=== PATIENT | female | born 1940 | race Caucasian/White ===

== ENCOUNTER → 2017-07-04 | Outpatient (CLI) | payer MEDICARE ==
--- NOTE | 2017-07-05 12:53 | MM ---
Reason for exam: screening (asymptomatic). Last mammogram was performed 2 years and 9 months ago. History: Patient is postmenopausal. Took hormonal contraceptives beginning at age 25. Physical Findings: A clinical breast exam by your physician is recommended on an annual basis and results should be correlated with mammographic findings. MG Screening Mammo w CAD Bilateral CC and MLO view(s) were taken. Prior study comparison: September 28, 2014, bilateral MG screening mammo w CAD. There are scattered fibroglandular densities. Mole marker in the left breast. No significant changes when compared with prior studies. ASSESSMENT: Benign, BI-RAD 2 RECOMMENDATION: Routine screening mammogram of both breasts in 1 year.
== END | disposition home or self-care (01) ==
LOC: RADMAMWWP 15:01
PROVIDERS: ATTEND Family Medicine
DX: Z12.31 Encounter for screening mammogram for malignant neoplasm of breast (principal)

== ENCOUNTER 2018-12-03 06:49 | Day surgery (SDC) | payer MEDICARE ==
[~2018-12-03 06:49] MED LIST: LACTATED RINGERS 1,000 ML IV SCH
[2018-12-03 07:09] VITALS: TEMP 97.9
[2018-12-03] MEDS ORDERED: LIDOCAINE 1% 20 ML VIAL (10MG/ML) FOR IV START INTRADERMA ONE (07:22)
[2018-12-03 07:29] LABS: Glucose,Whole Blood 141 mg/dL (75-99)
[2018-12-03] MEDS ORDERED: PROPOFOL 10 MG/ML 20 ML VIAL IV ONE (08:58)
[2018-12-03] MEDS ORDERED: LIDOCAINE 1% INJ 10MG/ML (20 ML MDV) ONE (08:58)
--- NOTE | 2018-12-03 09:33 | P.PCN ---
Date of Procedure: 12/03/18 Procedure(s) Performed: Procedure: Total colonoscopy. Preoperative diagnosis: Screening for neoplasia, patient has history of polyps. Postoperative diagnosis: Sigmoid diverticulosis with no evidence of acute diverticulitis, strictures, polyps or cancer. Preparation: HalfLytely prep. Sedation: Was provided by anesthesia. Brief clinical history: The patient is a 78-year-old female who is scheduled for this evaluation for screening for neoplasia because of history of polyps. Her last exam was in 2012. The patient has no abdominal complaints, bleeding or anemia. Procedure: With the patient on her left lateral decubitus position and after informed consent and adequate sedation, the perianal area was inspected and it did not show any fissures or fistulas. There were no masses felt on digital rectal examination. The Olympus CFH 190L video colonoscope was then inserted in the rectum in the usual fashion and advanced to the cecum. There were a few diverticular orifices seen scattered in the sigmoid but there was no evidence of acute diverticulitis or strictures. No polyps or tumors were seen. The mucosa appeared healthy. I retroflexed the endoscope in the rectum before the endoscope was withdrawn. The patient tolerated the procedure well. Plan: The patient was reassured. Discussed dietary measures. She will follow- up with you as planned. At her age, I did not suggest repeat surveillance or screening and she will discuss that with you in the future.
[2018-12-03 09:46] VITALS: BP 132/77; PULSE 56; RESP 18
== END 2018-12-03 10:09 | disposition home or self-care (01) ==
LOC: ORWHC2ENDO 06:49
DX: Z12.11 Encounter for screening for malignant neoplasm of colon (principal); K57.30 Diverticulosis of large intestine without perforation or abscess without bleeding; Z86.010 Personal history of colon polyps; Z88.5 Allergy status to narcotic agent; Z88.6 Allergy status to analgesic agent; Z91.040 Latex allergy status; M19.90 Unspecified osteoarthritis, unspecified site
CPT/HCPCS: G0121; J2001; J2704; 45378

== ENCOUNTER → 2020-04-21 | Outpatient (CLI) | payer MEDICARE ==
--- NOTE | 2020-04-22 04:10 | MR ---
EXAMINATION TYPE: MR foot RT wo con DATE OF EXAM: 04/21/2020 COMPARISON: 07/09/2014 HISTORY: Rt foot pain x3 weeks in area of prior injury/scar Multiplanar multiecho imaging of the right foot was performed without contrast. On the T2 images there is some diffuse increased signal in the proximal phalanx of the little toe. Th ere is also mild increased signal in the base of the proximal phalanx of the fourth toe. I see no fra cture line. The medial and lateral flexor tendons of the foot appear intact. Achilles tendon is intac t. There is a 18 x 7 mm oval-shaped fluid collection along the posterior aspect of the distal tibial metaphysis. This is probably a synovial cyst. There is a mild ankle joint effusion. The collateral li gaments of the ankle appear intact. IMPRESSION: There is mild subcutaneous edema of the forefoot around the toes. There is evidence of bone bruise an d edema involving the proximal phalanx of the fourth toe and the little toe. No fracture line seen. B one edema is new compared to old exam. Forefoot soft tissue swelling improved compared to old exam.
== END | disposition home or self-care (01) ==
LOC: RADMRIMAIN 09:15
PROVIDERS: ATTEND Orthopaedic Surgery
DX: S90.121A Contusion of right lesser toe(s) without damage to nail, initial encounter (principal); M79.89 Other specified soft tissue disorders; R60.0 Localized edema; M72.2 Plantar fascial fibromatosis

== ENCOUNTER → 2021-01-25 | Outpatient (CLI) | payer MEDICARE ==
--- NOTE | 2021-01-25 10:43 | BD ---
EXAMINATION TYPE: Axial Bone Density DATE OF EXAM: 01/25/2021 COMPARISON: NONE CLINICAL HISTORY: 80 YR OLD FEMALE......ICD-10 CODE: N95.1 POST MENOPAUSAL Height: 60 Weight: 164 FRAX RISK QUESTIONS: History of Fracture in Adulthood: YES RISK FACTORS HISTORY OF: HX OF HUMORAL FX AT AGE 64 YRS OLD Postmenopausal woman: YES AT AGE 47 YRS OLD Lost more than 2 inches in height since high school: YES Frequent falls: UNSTEADY, WALKS STOOPED A BIT Hyperparathyroidism: NO Adrenal Insufficiency: NO MEDICATIONS: Thyroid Medications: YES, SYNTHROID FOR ABOUT 3-5 YRS, NONE NOW Additional Medications: VIT D Additional History: HX OF MIS DIAGNOSED THYROID, PRE DIABETIC, SLIGHT HYPERTENSION EXAM MEASUREMENTS: Bone mineral densitometry was performed using the yourdel[employer] System. Bone mineral density as measured about the Lumbar spine is: ----- L1-L4(G/cm2): 1.312 T Score Values are as follows: ----- L1: 0.4 ----- L2: 0.0 ----- L3: 1.9 ----- L4: 2.0 ----- L1-L4: 1.1 Bone mineral density FIRST BONE DENSITY AT [facility] Bone mineral density about the R hip (g/cm2): 0.894 Bone mineral density about the L hip (g/cm2): 0.901 T Score values are as follows: -----R Neck: -0.5 -----L Neck: -0.2 -----R Total: -0.9 -----L Total: -0.8 Bone mineral density FIRST BONE DENSITY AT [facility] FRAX%s: THERE IS A 14.0% CHANCE FOR A MAJOR OSTEOPOROTIC FX AND A 1.8% CHANCE FOR HIP......PROBAB ILITY FOR FX IN 10 YRS TIME IMPRESSION: Normal (Values between +1 and -1 indicate normal bone mass). Consider repeating this study in 5 year s or sooner if there is some new clinical indication. NOTE: T-SCORE=SD OF THE YOUNG ADULT MEAN.
--- NOTE | 2021-01-26 13:55 | MM ---
Reason for exam: screening (asymptomatic). Last mammogram was performed 3 years and 7 months ago. History: Patient is postmenopausal. Took hormonal contraceptives beginning at age 25. Physical Findings: A clinical breast exam by your physician is recommended on an annual basis and results should be correlated with mammographic findings. MG 3D Screening Mammo W/Cad Bilateral CC and MLO view(s) were taken. Prior study comparison: July 04, 2017, bilateral MG screening mammo w CAD. September 28, 2014, bilateral MG screening mammo w CAD. There are scattered fibroglandular densities. Finding: There is a typically benign 5 mm equal density (isodense), oval mass located 11 cm from the nipple in the upper outer quadrant of the right breast, enlarged from comparison. There is a chronic nodularity in the right breast. New finding since July 04, 2017 and September 28, 2014. ASSESSMENT: Incomplete: need additional imaging evaluation, BI-RAD 0 RECOMMENDATION: Ultrasound of the right breast. [facility] will attempt to contact patient to return for ultrasound.
== END | disposition home or self-care (01) ==
LOC: RADMAMWWP 07:52
PROVIDERS: ATTEND Obstetrics & Gynecology
DX: Z12.31 Encounter for screening mammogram for malignant neoplasm of breast (principal); Z13.820 Encounter for screening for osteoporosis; Z78.0 Asymptomatic menopausal state
CPT/HCPCS: 77063; 77067; 77080

== ENCOUNTER → 2021-02-01 | Outpatient (CLI) | payer MEDICARE ==
--- NOTE | 2021-02-01 11:22 | USB ---
Reason for exam: additional evaluation requested from abnormal screening. History: Patient is postmenopausal. Took hormonal contraceptives beginning at age 25. Physical Findings: Nurse did not find any significant physical abnormalities on exam. US Breast Workup RT Technologist: Arlet Redmond Right complete breast ultrasound includes all four quadrants, the retroareolar region and axilla. Finding demonstrates a 0.7 x 0.5 x 0.4cm vascular lymph node at 10 o'clock and a 1.7 x 1.0 x 0.8cm vascular lymph node at the axilla. Mammographic nodule most likely corresponds to benign appearing lymph node. These results were verbally communicated with the patient and result sheet given to the patient on 02/01/21. ASSESSMENT: Benign, BI-RAD 2 RECOMMENDATION: Return to routine screening mammogram schedule for both breasts.
== END | disposition home or self-care (01) ==
LOC: RADUSWWP 09:54
PROVIDERS: ATTEND Obstetrics & Gynecology
DX: N63.10 Unspecified lump in the right breast, unspecified quadrant (principal); Z78.0 Asymptomatic menopausal state

== ENCOUNTER → 2022-07-11 | Outpatient (CLI) | payer MEDICARE ==
--- NOTE | 2022-07-12 12:31 | MM ---
Reason for Exam: Screening (asymptomatic). Last mammogram was performed 1 year(s) and 5 month(s) ago. Patient History: Menarche at age 13. First Full-Term at age 21. Postmenopausal. Patient has history of breast feeding. Hormonal Contraceptives, from age 25 until age 26. Risk Values: Antonette 5 year model risk: 1.4%. NCI Lifetime model risk: 2.1%. Prior Study Comparison: 09/28/2014 Bilateral Screening Mammogram, [facility]. 07/04/2017 Bilateral Screening Mammogram, [facility]. 01/25/2021 Bilateral Screening Mammogram, [facility]. Tissue Density: There are scattered fibroglandular densities. Findings: Analyzed By CAD. Stable 4 mm round circumscribed mass upper outer aspect right breast. Occasional scattered tiny benign-appearing calcifications throughout the bilateral breasts is redemonstrated. There is no suspicious new group of microcalcifications or new suspicious mass in either breast. Overall Assessment: Benign, BI-RAD 2 Management: Screening Mammogram of both breasts in 1 year. A clinical breast exam by your physician is recommended on an annual basis and results should be correlated with mammographic findings. Electronically signed and approved by: Deonte Ruiz M.D.
== END | disposition home or self-care (01) ==
LOC: RADMAMWWP 07:38
PROVIDERS: ATTEND Family Medicine
DX: Z12.31 Encounter for screening mammogram for malignant neoplasm of breast (principal)
CPT/HCPCS: 77063; 77067

== ENCOUNTER → 2023-08-31 | Outpatient (CLI) | payer MEDICARE ==
--- NOTE | 2023-09-03 14:42 | MM ---
Reason for Exam: Screening (asymptomatic). Last mammogram was performed 1 year(s) and 2 month(s) ago. Patient History: Menarche at age 13. First Full-Term at age 21. Postmenopausal. Patient has history of breast feeding. Hormonal Contraceptives, from age 25 until age 26. Risk Values: Antonette 5 year model risk: 1.4%. NCI Lifetime model risk: 1.9%. Prior Study Comparison: 07/04/2017 Bilateral Screening Mammogram, [facility]. 01/25/2021 Bilateral Screening Mammogram, [facility]. 07/11/2022 Bilateral MG 3D screening mammo w/cad, [facility]. Tissue Density: There are scattered fibroglandular densities. Findings: Analyzed By CAD. Abdomen appears symmetrical and stable. No significant interval change No suspicious groups of microcalcifications, spiculated or lobular masses, architectural distortion or other secondary signs of malignancy are mammographically apparent. Overall Assessment: Benign, BI-RAD 2 Management: Screening Mammogram of both breasts in 1 year. A negative mammogram report should not preclude additional follow up of suspicious palpable abnormalities. Patient should continue monthly self breast exam. A clinical breast exam by your physician is recommended on an annual basis and results should be correlated with mammographic findings. Electronically signed and approved by: Ricardo Juares D.O. Radiologis
== END | disposition home or self-care (01) ==
LOC: RADMAMWWP 07:51
PROVIDERS: ATTEND Family Medicine
DX: Z12.31 Encounter for screening mammogram for malignant neoplasm of breast (principal); Z78.0 Asymptomatic menopausal state
CPT/HCPCS: 77063; 77067